=== PATIENT | male | born 1995 | race Caucasian/White ===

== ENCOUNTER 2021-12-12 03:01 | Emergency (ER) | payer SELFPAY ==
[2021-12-12] MEDS ORDERED: Lactated Ringers 1,000 ML IV ONE (03:31)
== END 2021-12-12 03:45 | disposition home or self-care (01) ==
LOC: JD.ED 03:01
DX: Z77.21 Contact with and (suspected) exposure to potentially hazardous body fluids (principal)
CPT/HCPCS: 99282; 99283